=== PATIENT | male | born 1960 | race Caucasian/White ===

== ENCOUNTER 2021-08-02 11:00 | Inpatient (IN) | payer OTHER ==
[2021-08-02] MEDS ORDERED: MAGNESIUM CITRATE 300 ML BOTTLE PO PRN (11:58)
[2021-08-02] MEDS ORDERED: IBUPROFEN 400 MG TABLET (FP) PO PRN (11:58)
[2021-08-02] MEDS ORDERED: MAG HYDROX/AL HYDROX/SIMETH 30 ML UNIT-DOSE CUP PO PRN (11:58)
[2021-08-02] MEDS ORDERED: MAGNESIUM HYDROX 2400MG/30ML ORAL SUSPENSION 30 ML CUP PO PRN (11:58)
[2021-08-02] MEDS ORDERED: LOPERAMIDE HCL 2 MG CAPSULE PO PRN (11:58)
[2021-08-02] MEDS ORDERED: guaiFENesin 200 MG/10 ML 10 ML UNIT-DOSE CUPS PO PRN (11:58)
[2021-08-02] MEDS ORDERED: ACETAMINOPHEN 325 MG TABLET (FP) PO PRN (11:58)
[2021-08-02] MEDS ORDERED: P-EPHED 60MG/TRIPROLIDI 2.5MG TABLET PO PRN (11:58)
[2021-08-02 12:32] VITALS: BMI 26.9
[2021-08-02] MEDS: PRENATAL VITAMINS W/ FOLIC ACID TABLET (FP) PO SCH (18:18)
[2021-08-02] MEDS: hydrOXYzine PAMOATE 25 MG CAPSULE (FP) PO SCH ×3 (18:18→21:57)
[2021-08-02] MEDS: NICOTINE 10 MG CARTRIDGE (INHALER) IH PRN (18:19)
[2021-08-02] MEDS: NICOTINE 7 MG/24 HOURS TOPICAL PATCH TD SCH (18:22)
[2021-08-02] MEDS: THIAMINE HCL 100 MG TABLET (FP) PO SCH (21:57)
[2021-08-02] MEDS: MELATONIN 5 MG TABLETS PO SCH (21:57)
[2021-08-03] MEDS: hydrOXYzine PAMOATE 25 MG CAPSULE (FP) PO SCH ×5 (06:03→21:12)
[2021-08-03] MEDS ORDERED: methaDONE HCL 40 MG DISPERSABLE TABLET PO SCH (07:30)
[2021-08-03] MEDS ORDERED: methaDONE 80 MG, methaDONE 10 MG PO ONE (08:00)
[2021-08-03] MEDS ORDERED: methaDONE HCL 40 MG DISPERSABLE TABLET ONE (08:03)
[2021-08-03] MEDS ORDERED: methaDONE HCL 10 MG TABLET ONE (08:03)
[2021-08-03] MEDS: PRENATAL VITAMINS W/ FOLIC ACID TABLET (FP) PO SCH (10:48)
[2021-08-03] MEDS: NICOTINE 7 MG/24 HOURS TOPICAL PATCH TD SCH (10:48)
[2021-08-03 14:16] LABS: HEMATOCRIT 37.5 % (35.4-49); HEMOGLOBIN 12.5 GM/dL (11.7-16.9); MCH 28.7 pg (25.7-33.7); MCHC 33.4 g/dl (32.0-35.9); MEAN CELL VOLUME 85.9 fl (80-96); MEAN PLT VOLUME 9.8 fl (7.5-11.1); PLATELET COUNT 149 10^3/uL (134-434); RBC 4.37 M/mm3 (4.00-5.60); RDW 13.8 % (11.9-15.9); WHITE BLOOD COUNT 5.5 K/mm3 (4.0-10.0)
[2021-08-03 14:17] LABS: ALBUMIN 3.3 g/dl (3.4-5.0); BLOOD UREA NITROGEN 11.2 mg/dL (7-18); CALCIUM 8.1 mg/dL (8.5-10.1)
[2021-08-03 14:20] LABS: CREATININE 0.9 mg/dL (0.55-1.3)
[2021-08-03 14:22] LABS: BILIRUBIN,TOTAL 0.5 mg/dL (0.2-1); TOT PROT 6.2 g/dl (6.4-8.2)
[2021-08-03 14:42] LABS: SYPHILIS W/ RPR CONF NON-REACTIVE (NONREACTIVE)
[2021-08-03] MEDS: THIAMINE HCL 100 MG TABLET (FP) PO SCH (21:12)
[2021-08-03] MEDS: MELATONIN 5 MG TABLETS PO SCH (21:12)
[2021-08-04] MEDS: hydrOXYzine PAMOATE 25 MG CAPSULE (FP) PO SCH ×5 (05:58→21:35)
[2021-08-04] MEDS ORDERED: methaDONE HCL 10 MG TABLET ONE (06:22)
[2021-08-04] MEDS ORDERED: methaDONE HCL 40 MG DISPERSABLE TABLET ONE (06:22)
[2021-08-04] MEDS: methaDONE 80 MG, methaDONE 10 MG PO SCH (06:24)
[2021-08-04] MEDS: PRENATAL VITAMINS W/ FOLIC ACID TABLET (FP) PO SCH (10:16)
[2021-08-04] MEDS: NICOTINE 7 MG/24 HOURS TOPICAL PATCH TD SCH (10:16)
[2021-08-04] MEDS: TOLNAFTATE 1% CREAM 15 GM TUBE TP SCH ×2 (14:32→21:35)
[2021-08-04] MEDS: MELATONIN 5 MG TABLETS PO SCH (21:34)
[2021-08-04] MEDS: THIAMINE HCL 100 MG TABLET (FP) PO SCH (21:34)
[2021-08-05] MEDS ORDERED: methaDONE HCL 40 MG DISPERSABLE TABLET ONE (06:17)
[2021-08-05] MEDS ORDERED: methaDONE HCL 10 MG TABLET ONE (06:17)
[2021-08-05] MEDS: methaDONE 80 MG, methaDONE 10 MG PO SCH (06:17)
[2021-08-05] MEDS: hydrOXYzine PAMOATE 25 MG CAPSULE (FP) PO SCH ×5 (06:18→21:37)
[2021-08-05] MEDS: PRENATAL VITAMINS W/ FOLIC ACID TABLET (FP) PO SCH (10:04)
[2021-08-05] MEDS: NICOTINE 7 MG/24 HOURS TOPICAL PATCH TD SCH (10:04)
[2021-08-05] MEDS: TOLNAFTATE 1% CREAM 15 GM TUBE TP SCH ×2 (10:05→21:37)
[2021-08-05 12:59] LABS: PH,URINE 5.5 (5.0-8.0); URINE APPEARANCE CLEAR; URINE BILIRUBIN NEGATIVE (NEGATIVE); URINE COLOR YELLOW; URINE GLUCOSE (UA) NEGATIVE (NEGATIVE); URINE KETONE NEGATIVE (NEGATIVE); URINE LEUK ESTERASE NEGATIVE (NEGATIVE); URINE NITRITE NEGATIVE (NEGATIVE); URINE PROTEIN NEGATIVE (NEGATIVE); URINE UROBILINOGEN 0.2 mg/dL (0.2-1.0)
[2021-08-05] MEDS: BACITRACIN 0.9 GM PACKET TP SCH (13:43)
[2021-08-05] MEDS: NICOTINE 10 MG CARTRIDGE (INHALER) IH PRN ×2 (15:45→21:38)
[2021-08-05] MEDS: MELATONIN 5 MG TABLETS PO SCH (21:36)
[2021-08-05] MEDS: THIAMINE HCL 100 MG TABLET (FP) PO SCH (21:37)
[2021-08-06] MEDS ORDERED: methaDONE HCL 10 MG TABLET ONE (02:33)
[2021-08-06] MEDS ORDERED: methaDONE HCL 40 MG DISPERSABLE TABLET ONE (02:34)
[2021-08-06] MEDS: hydrOXYzine PAMOATE 25 MG CAPSULE (FP) PO SCH ×5 (06:00→21:31)
[2021-08-06] MEDS: methaDONE 80 MG, methaDONE 10 MG PO SCH (06:12)
[2021-08-06] MEDS: TOLNAFTATE 1% CREAM 15 GM TUBE TP SCH ×2 (09:52→21:32)
[2021-08-06] MEDS: NICOTINE 7 MG/24 HOURS TOPICAL PATCH TD SCH (09:52)
[2021-08-06] MEDS: BACITRACIN 0.9 GM PACKET TP SCH (09:52)
[2021-08-06] MEDS: PRENATAL VITAMINS W/ FOLIC ACID TABLET (FP) PO SCH (09:52)
[2021-08-06] MEDS: NICOTINE 10 MG CARTRIDGE (INHALER) IH PRN ×3 (09:59→21:32)
[2021-08-06 14:11] LABS: SARS-CoV-2 NAA Not Detected (Not Detected)
[2021-08-06] MEDS: THIAMINE HCL 100 MG TABLET (FP) PO SCH (21:31)
[2021-08-06] MEDS: MELATONIN 5 MG TABLETS PO SCH (21:31)
[2021-08-07] MEDS ORDERED: methaDONE HCL 10 MG TABLET ONE (02:41)
[2021-08-07] MEDS ORDERED: methaDONE HCL 40 MG DISPERSABLE TABLET ONE (02:41)
[2021-08-07] MEDS: hydrOXYzine PAMOATE 25 MG CAPSULE (FP) PO SCH ×5 (06:05→21:25)
[2021-08-07] MEDS: methaDONE 80 MG, methaDONE 10 MG PO SCH (06:18)
[2021-08-07] MEDS: NICOTINE 10 MG CARTRIDGE (INHALER) IH PRN ×3 (06:18→17:53)
[2021-08-07] MEDS: NICOTINE 7 MG/24 HOURS TOPICAL PATCH TD SCH (10:21)
[2021-08-07] MEDS: PRENATAL VITAMINS W/ FOLIC ACID TABLET (FP) PO SCH (10:21)
[2021-08-07] MEDS: BACITRACIN 0.9 GM PACKET TP SCH (10:22)
[2021-08-07] MEDS: TOLNAFTATE 1% CREAM 15 GM TUBE TP SCH ×2 (10:24→21:25)
[2021-08-07] MEDS: MELATONIN 5 MG TABLETS PO SCH (21:25)
[2021-08-07] MEDS: THIAMINE HCL 100 MG TABLET (FP) PO SCH (21:25)
[2021-08-08] MEDS ORDERED: methaDONE HCL 40 MG DISPERSABLE TABLET ONE (03:57)
[2021-08-08] MEDS ORDERED: methaDONE HCL 10 MG TABLET ONE (03:57)
[2021-08-08] MEDS: hydrOXYzine PAMOATE 25 MG CAPSULE (FP) PO SCH ×5 (06:28→21:14)
[2021-08-08] MEDS: methaDONE 80 MG, methaDONE 10 MG PO SCH (06:28)
[2021-08-08] MEDS: NICOTINE 10 MG CARTRIDGE (INHALER) IH PRN ×3 (06:29→17:57)
[2021-08-08] MEDS: PRENATAL VITAMINS W/ FOLIC ACID TABLET (FP) PO SCH (09:45)
[2021-08-08] MEDS: BACITRACIN 0.9 GM PACKET TP SCH (09:45)
[2021-08-08] MEDS: NICOTINE 7 MG/24 HOURS TOPICAL PATCH TD SCH (09:46)
[2021-08-08] MEDS: TOLNAFTATE 1% CREAM 15 GM TUBE TP SCH ×2 (09:46→21:15)
[2021-08-08] MEDS: THIAMINE HCL 100 MG TABLET (FP) PO SCH (21:14)
[2021-08-08] MEDS: MELATONIN 5 MG TABLETS PO SCH (21:14)
[2021-08-09] MEDS ORDERED: methaDONE HCL 40 MG DISPERSABLE TABLET ONE (03:29)
[2021-08-09] MEDS ORDERED: methaDONE HCL 10 MG TABLET ONE (03:29)
[2021-08-09] MEDS: hydrOXYzine PAMOATE 25 MG CAPSULE (FP) PO SCH ×5 (06:21→21:29)
[2021-08-09] MEDS: methaDONE 80 MG, methaDONE 10 MG PO SCH (06:22)
[2021-08-09] MEDS: NICOTINE 10 MG CARTRIDGE (INHALER) IH PRN ×3 (09:51→21:29)
[2021-08-09] MEDS: NICOTINE 7 MG/24 HOURS TOPICAL PATCH TD SCH (09:52)
[2021-08-09] MEDS: BACITRACIN 0.9 GM PACKET TP SCH (09:52)
[2021-08-09] MEDS: PRENATAL VITAMINS W/ FOLIC ACID TABLET (FP) PO SCH (09:52)
[2021-08-09] MEDS: TOLNAFTATE 1% CREAM 15 GM TUBE TP SCH ×2 (09:53→21:29)
[2021-08-09] MEDS: MELATONIN 5 MG TABLETS PO SCH (21:29)
[2021-08-09] MEDS: THIAMINE HCL 100 MG TABLET (FP) PO SCH (21:29)
[2021-08-10] MEDS ORDERED: methaDONE HCL 40 MG DISPERSABLE TABLET ONE (02:43)
[2021-08-10] MEDS ORDERED: methaDONE HCL 10 MG TABLET ONE (02:43)
[2021-08-10] MEDS: hydrOXYzine PAMOATE 25 MG CAPSULE (FP) PO SCH ×3 (06:08→09:58)
[2021-08-10] MEDS: methaDONE 80 MG, methaDONE 10 MG PO SCH (06:15)
[2021-08-10] MEDS: NICOTINE 10 MG CARTRIDGE (INHALER) IH PRN ×2 (06:18→19:56)
[2021-08-10] MEDS: NICOTINE 7 MG/24 HOURS TOPICAL PATCH TD SCH (09:57)
[2021-08-10] MEDS: PRENATAL VITAMINS W/ FOLIC ACID TABLET (FP) PO SCH (09:57)
[2021-08-10] MEDS: BACITRACIN 0.9 GM PACKET TP SCH (09:57)
[2021-08-10] MEDS: TOLNAFTATE 1% CREAM 15 GM TUBE TP SCH ×2 (09:58→21:20)
[2021-08-10] MEDS: THIAMINE HCL 100 MG TABLET (FP) PO SCH (21:19)
[2021-08-10] MEDS: MELATONIN 5 MG TABLETS PO SCH (21:19)
[2021-08-10] MEDS: hydrOXYzine PAMOATE 25 MG CAPSULE (FP) PO PRN (21:20)
[2021-08-11] MEDS ORDERED: methaDONE HCL 40 MG DISPERSABLE TABLET ONE (06:11)
[2021-08-11] MEDS ORDERED: methaDONE HCL 10 MG TABLET ONE (06:11)
[2021-08-11] MEDS: methaDONE 80 MG, methaDONE 10 MG PO SCH (06:12)
[2021-08-11] MEDS: NICOTINE 10 MG CARTRIDGE (INHALER) IH PRN ×2 (06:13→21:28)
[2021-08-11] MEDS: NICOTINE 7 MG/24 HOURS TOPICAL PATCH TD SCH (09:49)
[2021-08-11] MEDS: PRENATAL VITAMINS W/ FOLIC ACID TABLET (FP) PO SCH (09:49)
[2021-08-11] MEDS: BACITRACIN 0.9 GM PACKET TP SCH (09:50)
[2021-08-11] MEDS: TOLNAFTATE 1% CREAM 15 GM TUBE TP SCH ×2 (09:50→21:28)
[2021-08-11] MEDS: hydrOXYzine PAMOATE 25 MG CAPSULE (FP) PO PRN ×2 (09:51→21:27)
[2021-08-11] MEDS: THIAMINE HCL 100 MG TABLET (FP) PO SCH (21:27)
[2021-08-11] MEDS: MELATONIN 5 MG TABLETS PO SCH (21:27)
[2021-08-12] MEDS ORDERED: methaDONE HCL 10 MG TABLET ONE (02:44)
[2021-08-12] MEDS ORDERED: methaDONE HCL 40 MG DISPERSABLE TABLET ONE (02:44)
[2021-08-12] MEDS: methaDONE 80 MG, methaDONE 10 MG PO SCH (06:10)
[2021-08-12] MEDS: NICOTINE 10 MG CARTRIDGE (INHALER) IH PRN ×2 (06:11→19:50)
[2021-08-12] MEDS: hydrOXYzine PAMOATE 25 MG CAPSULE (FP) PO PRN ×2 (10:12→21:36)
[2021-08-12] MEDS: PRENATAL VITAMINS W/ FOLIC ACID TABLET (FP) PO SCH (10:12)
[2021-08-12] MEDS: BACITRACIN 0.9 GM PACKET TP SCH (10:12)
[2021-08-12] MEDS: TOLNAFTATE 1% CREAM 15 GM TUBE TP SCH ×2 (10:13→23:54)
[2021-08-12] MEDS: NICOTINE 7 MG/24 HOURS TOPICAL PATCH TD SCH (10:13)
[2021-08-12] MEDS: MELATONIN 5 MG TABLETS PO SCH (21:36)
[2021-08-12] MEDS: THIAMINE HCL 100 MG TABLET (FP) PO SCH (21:36)
[2021-08-13] MEDS ORDERED: methaDONE HCL 40 MG DISPERSABLE TABLET ONE (04:03)
[2021-08-13] MEDS ORDERED: methaDONE HCL 10 MG TABLET ONE (04:03)
[2021-08-13] MEDS: NICOTINE 10 MG CARTRIDGE (INHALER) IH PRN ×3 (06:14→21:48)
[2021-08-13] MEDS: methaDONE 80 MG, methaDONE 10 MG PO SCH (06:15)
[2021-08-13] MEDS: PRENATAL VITAMINS W/ FOLIC ACID TABLET (FP) PO SCH (10:17)
[2021-08-13] MEDS: BACITRACIN 0.9 GM PACKET TP SCH (10:18)
[2021-08-13] MEDS: TOLNAFTATE 1% CREAM 15 GM TUBE TP SCH ×2 (10:18→21:47)
[2021-08-13] MEDS: NICOTINE 7 MG/24 HOURS TOPICAL PATCH TD SCH (10:18)
[2021-08-13] MEDS: hydrOXYzine PAMOATE 25 MG CAPSULE (FP) PO PRN ×2 (10:19→21:48)
[2021-08-13] MEDS: THIAMINE HCL 100 MG TABLET (FP) PO SCH (21:46)
[2021-08-13] MEDS: MELATONIN 5 MG TABLETS PO SCH (21:47)
[2021-08-14] MEDS ORDERED: methaDONE HCL 40 MG DISPERSABLE TABLET ONE (04:50)
[2021-08-14] MEDS ORDERED: methaDONE HCL 10 MG TABLET ONE (04:50)
[2021-08-14] MEDS: NICOTINE 10 MG CARTRIDGE (INHALER) IH PRN ×4 (06:18→21:27)
[2021-08-14] MEDS: methaDONE 80 MG, methaDONE 10 MG PO SCH (06:18)
[2021-08-14] MEDS: hydrOXYzine PAMOATE 25 MG CAPSULE (FP) PO PRN ×2 (06:20→21:27)
[2021-08-14] MEDS: PRENATAL VITAMINS W/ FOLIC ACID TABLET (FP) PO SCH (10:11)
[2021-08-14] MEDS: NICOTINE 7 MG/24 HOURS TOPICAL PATCH TD SCH (10:13)
[2021-08-14] MEDS: TOLNAFTATE 1% CREAM 15 GM TUBE TP SCH ×2 (10:13→23:29)
[2021-08-14] MEDS: BACITRACIN 0.9 GM PACKET TP SCH (10:13)
[2021-08-14] MEDS: MELATONIN 5 MG TABLETS PO SCH (21:27)
[2021-08-14] MEDS: THIAMINE HCL 100 MG TABLET (FP) PO SCH (21:27)
[2021-08-15] MEDS ORDERED: methaDONE HCL 10 MG TABLET ONE (02:52)
[2021-08-15] MEDS ORDERED: methaDONE HCL 40 MG DISPERSABLE TABLET ONE (02:52)
[2021-08-15] MEDS: methaDONE 80 MG, methaDONE 10 MG PO SCH (06:24)
[2021-08-15] MEDS: NICOTINE 10 MG CARTRIDGE (INHALER) IH PRN ×2 (06:25→21:33)
[2021-08-15] MEDS: PRENATAL VITAMINS W/ FOLIC ACID TABLET (FP) PO SCH (10:11)
[2021-08-15] MEDS: hydrOXYzine PAMOATE 25 MG CAPSULE (FP) PO PRN ×2 (10:11→21:33)
[2021-08-15] MEDS: NICOTINE 7 MG/24 HOURS TOPICAL PATCH TD SCH (10:12)
[2021-08-15] MEDS: BACITRACIN 0.9 GM PACKET TP SCH (10:12)
[2021-08-15] MEDS: TOLNAFTATE 1% CREAM 15 GM TUBE TP SCH ×2 (10:12→21:33)
[2021-08-15] MEDS: THIAMINE HCL 100 MG TABLET (FP) PO SCH (21:33)
[2021-08-15] MEDS: MELATONIN 5 MG TABLETS PO SCH (21:33)
[2021-08-16] MEDS ORDERED: methaDONE HCL 10 MG TABLET ONE (02:49)
[2021-08-16] MEDS ORDERED: methaDONE HCL 40 MG DISPERSABLE TABLET ONE (02:49)
[2021-08-16] MEDS: methaDONE 80 MG, methaDONE 10 MG PO SCH (06:14)
[2021-08-16 07:25] VITALS: BP 141/81; PULSE 71; TEMP 97.8
[2021-08-16] MEDS: PRENATAL VITAMINS W/ FOLIC ACID TABLET (FP) PO SCH (09:40)
[2021-08-16] MEDS: BACITRACIN 0.9 GM PACKET TP SCH (09:40)
[2021-08-16] MEDS: TOLNAFTATE 1% CREAM 15 GM TUBE TP SCH (09:40)
[2021-08-16] MEDS: NICOTINE 7 MG/24 HOURS TOPICAL PATCH TD SCH (09:40)
== END 2021-08-16 10:00 | disposition home or self-care (01) | DRG 772 ==
LOC: YASAS 11:00 → Y5N 16:41
PROVIDERS: ADMIT Allergy & Immunology; ATTEND Allergy & Immunology
PROC: HZ42ZZZ Group Counseling for Substance Abuse Treatment, Cognitive-Behavioral (ICD-10-PCS; principal; 2021-08-02)
DX: F11.20 Opioid dependence, uncomplicated (principal); F14.20 Cocaine dependence, uncomplicated; F13.20 Sedative, hypnotic or anxiolytic dependence, uncomplicated; F12.20 Cannabis dependence, uncomplicated; F17.210 Nicotine dependence, cigarettes, uncomplicated; M54.50 Low back pain, unspecified; G89.29 Other chronic pain; B35.3 Tinea pedis
CPT/HCPCS: 36415; 80053; 81003; 85027; 86780; 86803; 87522; 93005; 93010; C9803; U0003; U0005

== ENCOUNTER 2023-04-17 10:55 | Inpatient (IN) | payer OTHER ==
[2023-04-17 11:32] VITALS: BMI 25.8
[2023-04-17] MEDS ORDERED: BENZONATATE 200 MG CAPSULE PO PRN (13:27)
[2023-04-17] MEDS ORDERED: ACETAMINOPHEN 325 MG TABLET (FP) PO PRN (13:27)
[2023-04-17] MEDS ORDERED: IBUPROFEN 600 MG TABLET (FP) PO PRN (13:27)
[2023-04-17] MEDS ORDERED: NALOXONE HCL (KLOXXADO) 8 MG SPRAY NS PRN (13:27)
[2023-04-17] MEDS ORDERED: POLYETHYLENE GLYCOL (HEALTHYLAX) 3350 17 GM PACKET PO PRN (13:27)
[2023-04-17] MEDS ORDERED: MAG HYDROX/AL HYDROX/SIMETH 30 ML UNIT-DOSE CUP PO PRN (13:27)
[2023-04-17] MEDS ORDERED: guaiFENesin 600 MG TABLET.ER (FP) PO PRN (13:27)
[2023-04-17] MEDS ORDERED: IBUPROFEN 400 MG TABLET (FP) PO PRN (13:27)
[2023-04-17] MEDS ORDERED: hydrOXYzine PAMOATE 25 MG CAPSULE (FP) PO PRN (13:27)
[2023-04-17] MEDS ORDERED: BENZOCAINE/MENTHOL (CHLORASEPTIC ) LOZENGE MM PRN (13:27)
[2023-04-17] MEDS ORDERED: COLLOIDAL OATMEAL 1 BAR EACH TP PRN (13:27)
[2023-04-17] MEDS ORDERED: NALOXONE HCL 0.4 MG/ML VIAL IM PRN (13:27)
[2023-04-17] MEDS ORDERED: MAGNESIUM HYDROX 2400MG/30ML ORAL SUSPENSION 30 ML CUP PO PRN (13:27)
[2023-04-17] MEDS ORDERED: LOPERAMIDE HCL 2 MG CAPSULE PO PRN (13:27)
[2023-04-17] MEDS ORDERED: PRENATAL VITAMINS W/ FOLIC ACID TABLET (FP) PO ONE (14:04)
[2023-04-17] MEDS ORDERED: NICOTINE 14 MG/24 HOURS TOPICAL PATCH TD ONE (14:04)
[2023-04-17] MEDS: NICOTINE 14 MG/24 HOURS TOPICAL PATCH TD SCH (14:07)
[2023-04-17] MEDS: PRENATAL VITAMINS W/ FOLIC ACID TABLET (FP) PO SCH (14:07)
[2023-04-17] MEDS ORDERED: methaDONE HCL 10 MG TABLET PO SCH (15:00)
[2023-04-17] MEDS ORDERED: TUBERCULIN PPD 5 TU/0.1ML SYRINGE (IN PATIENT USE ONLY) ID ONE (18:00)
[2023-04-17] MEDS: THIAMINE HCL 100 MG TABLET (FP) PO SCH (22:15)
[2023-04-17] MEDS: MELATONIN 5 MG TABLETS PO SCH (22:15)
[2023-04-17] MEDS ORDERED: TUBERCULIN PPD 5 TU/0.1ML VIAL ID ONE ×2 (22:29→22:50)
[2023-04-18] MEDS ORDERED: NICOTINE POLACRILEX 4 MG GUM BUC PRN (08:16)
[2023-04-18] MEDS: PRENATAL VITAMINS W/ FOLIC ACID TABLET (FP) PO SCH (10:07)
[2023-04-18] MEDS: NICOTINE 14 MG/24 HOURS TOPICAL PATCH TD SCH (10:07)
[2023-04-18] MEDS: METHOCARBAMOL 500 MG TABLET PO PRN ×2 (10:09→21:12)
[2023-04-18 10:56] LABS: HEMATOCRIT 38.6 % (35.4-49); HEMOGLOBIN 12.7 GM/dL (11.7-16.9); MCH 28.2 pg (25.7-33.7); MEAN CELL VOLUME 85.4 fl (80-96); MEAN PLT VOLUME 10.1 fl (7.5-11.1); PLATELET COUNT 171 10^3/uL (134-434); RBC 4.52 M/mm3 (4.00-5.60); RDW 13.7 % (11.9-15.9); WHITE BLOOD COUNT 5.5 K/mm3 (4.0-10.0)
[2023-04-18 11:05] LABS: CHLORIDE 108 mmol/L (98-107); POTASSIUM 4.4 mmol/L (3.5-5.1); SODIUM 138 mmol/L (136-145)
[2023-04-18 11:19] LABS: BLOOD UREA NITROGEN 14.7 mg/dL (7-18); GLUCOSE,RANDOM 97 mg/dL (74-106)
[2023-04-18 11:20] LABS: ALBUMIN 3.3 g/dl (3.4-5.0)
[2023-04-18 11:21] LABS: ANION GAP 6 mmol/L (4-13); CALCIUM 8.1 mg/dL (8.5-10.1); CO2 25 mmol/L (21-32)
[2023-04-18 11:22] LABS: CREATININE 0.9 mg/dL (0.55-1.3); SGOT/AST 13 U/L (15-37); SGPT/ALT 13 U/L (13-61)
[2023-04-18 11:23] LABS: BILIRUBIN,TOTAL 0.4 mg/dL (0.2-1); TOT PROT 6.8 g/dl (6.4-8.2)
[2023-04-18 11:25] LABS: ALK PHOS 60 U/L (45-117)
[2023-04-18 11:29] LABS: SYPHILIS W/ RPR CONF NON-REACTIVE (NONREACTIVE)
[2023-04-18 13:41] LABS: PH,URINE 5.5 (5.0-8.0); URINE APPEARANCE CLEAR; URINE BILIRUBIN NEGATIVE (NEGATIVE); URINE COLOR YELLOW; URINE GLUCOSE (UA) NEGATIVE (NEGATIVE); URINE KETONE NEGATIVE (NEGATIVE); URINE LEUK ESTERASE NEGATIVE (NEGATIVE); URINE NITRITE NEGATIVE (NEGATIVE); URINE PROTEIN NEGATIVE (NEGATIVE); URINE UROBILINOGEN 0.2 mg/dL (0.2-1.0)
[2023-04-18] MEDS ORDERED: AMMONIUM LACTATE 12% LOTION 225 GM BOTTLE TP PRN (15:19)
[2023-04-18] MEDS: THIAMINE HCL 100 MG TABLET (FP) PO SCH (21:10)
[2023-04-18] MEDS: MELATONIN 5 MG TABLETS PO SCH (21:10)
[2023-04-18] MEDS: TOLNAFTATE 1% CREAM 15 GM TUBE TP SCH (21:12)
[2023-04-18] MEDS ORDERED: SUVOREXANT 10 MG TABLET PO PRN (22:00)
[2023-04-19] MEDS: METHOCARBAMOL 500 MG TABLET PO PRN (06:17)
[2023-04-19] MEDS: TOLNAFTATE 1% CREAM 15 GM TUBE TP SCH ×2 (10:07→21:06)
[2023-04-19] MEDS: NICOTINE 14 MG/24 HOURS TOPICAL PATCH TD SCH (10:07)
[2023-04-19] MEDS: CALCIUM 500MG/VIT-D 200 UNITS COMBO TABLET (FP) PO SCH (10:07)
[2023-04-19] MEDS: PRENATAL VITAMINS W/ FOLIC ACID TABLET (FP) PO SCH (10:07)
[2023-04-19] MEDS: THIAMINE HCL 100 MG TABLET (FP) PO SCH (21:06)
[2023-04-19] MEDS: SUVOREXANT 10 MG TABLET PO PRN (21:08)
[2023-04-20] MEDS: METHOCARBAMOL 500 MG TABLET PO PRN (06:15)
[2023-04-20] MEDS: NICOTINE 14 MG/24 HOURS TOPICAL PATCH TD SCH (10:08)
[2023-04-20] MEDS: TOLNAFTATE 1% CREAM 15 GM TUBE TP SCH ×2 (10:09→21:04)
[2023-04-20] MEDS: PRENATAL VITAMINS W/ FOLIC ACID TABLET (FP) PO SCH (10:09)
[2023-04-20] MEDS: CALCIUM 500MG/VIT-D 200 UNITS COMBO TABLET (FP) PO SCH (10:09)
[2023-04-20] MEDS: THIAMINE HCL 100 MG TABLET (FP) PO SCH (21:03)
[2023-04-20] MEDS: SUVOREXANT 10 MG TABLET PO PRN (21:05)
[2023-04-21] MEDS: CALCIUM 500MG/VIT-D 200 UNITS COMBO TABLET (FP) PO SCH (09:53)
[2023-04-21] MEDS: NICOTINE 14 MG/24 HOURS TOPICAL PATCH TD SCH (09:53)
[2023-04-21] MEDS: METHOCARBAMOL 500 MG TABLET PO PRN ×2 (09:54→21:05)
[2023-04-21] MEDS: TOLNAFTATE 1% CREAM 15 GM TUBE TP SCH ×2 (09:54→21:04)
[2023-04-21] MEDS: PRENATAL VITAMINS W/ FOLIC ACID TABLET (FP) PO SCH (09:54)
[2023-04-21] MEDS: SUVOREXANT 10 MG TABLET PO PRN (21:05)
[2023-04-21] MEDS: THIAMINE HCL 100 MG TABLET (FP) PO SCH (21:05)
[2023-04-22] MEDS: CALCIUM 500MG/VIT-D 200 UNITS COMBO TABLET (FP) PO SCH (09:35)
[2023-04-22] MEDS: NICOTINE 14 MG/24 HOURS TOPICAL PATCH TD SCH (09:35)
[2023-04-22] MEDS: METHOCARBAMOL 500 MG TABLET PO PRN ×2 (09:36→21:08)
[2023-04-22] MEDS: PRENATAL VITAMINS W/ FOLIC ACID TABLET (FP) PO SCH (09:37)
[2023-04-22] MEDS: TOLNAFTATE 1% CREAM 15 GM TUBE TP SCH ×2 (09:37→21:08)
[2023-04-22] MEDS: THIAMINE HCL 100 MG TABLET (FP) PO SCH (21:08)
[2023-04-22] MEDS: SUVOREXANT 10 MG TABLET PO PRN (21:08)
[2023-04-23] MEDS: CALCIUM 500MG/VIT-D 200 UNITS COMBO TABLET (FP) PO SCH (09:43)
[2023-04-23] MEDS: PRENATAL VITAMINS W/ FOLIC ACID TABLET (FP) PO SCH (09:43)
[2023-04-23] MEDS: NICOTINE 14 MG/24 HOURS TOPICAL PATCH TD SCH (09:43)
[2023-04-23] MEDS: TOLNAFTATE 1% CREAM 15 GM TUBE TP SCH ×2 (09:44→21:16)
[2023-04-23] MEDS: METHOCARBAMOL 500 MG TABLET PO PRN (09:45)
[2023-04-23] MEDS: THIAMINE HCL 100 MG TABLET (FP) PO SCH (21:15)
[2023-04-23] MEDS: SUVOREXANT 10 MG TABLET PO PRN (21:16)
[2023-04-24] MEDS: NICOTINE 14 MG/24 HOURS TOPICAL PATCH TD SCH (09:52)
[2023-04-24] MEDS: TOLNAFTATE 1% CREAM 15 GM TUBE TP SCH ×2 (09:53→21:10)
[2023-04-24] MEDS: CALCIUM 500MG/VIT-D 200 UNITS COMBO TABLET (FP) PO SCH (09:53)
[2023-04-24] MEDS: PRENATAL VITAMINS W/ FOLIC ACID TABLET (FP) PO SCH (09:53)
[2023-04-24] MEDS: METHOCARBAMOL 500 MG TABLET PO PRN ×2 (09:54→21:10)
[2023-04-24] MEDS: SUVOREXANT 10 MG TABLET PO PRN (21:08)
[2023-04-24] MEDS: THIAMINE HCL 100 MG TABLET (FP) PO SCH (21:10)
[2023-04-25] MEDS: CALCIUM 500MG/VIT-D 200 UNITS COMBO TABLET (FP) PO SCH (09:46)
[2023-04-25] MEDS: NICOTINE 14 MG/24 HOURS TOPICAL PATCH TD SCH (09:46)
[2023-04-25] MEDS: METHOCARBAMOL 500 MG TABLET PO PRN ×2 (09:46→21:16)
[2023-04-25] MEDS: PRENATAL VITAMINS W/ FOLIC ACID TABLET (FP) PO SCH (09:46)
[2023-04-25] MEDS: TOLNAFTATE 1% CREAM 15 GM TUBE TP SCH ×2 (10:49→21:54)
[2023-04-25] MEDS: THIAMINE HCL 100 MG TABLET (FP) PO SCH (21:15)
[2023-04-25] MEDS: SUVOREXANT 10 MG TABLET PO PRN (21:15)
[2023-04-26] MEDS: NICOTINE 14 MG/24 HOURS TOPICAL PATCH TD SCH (10:19)
[2023-04-26] MEDS: PRENATAL VITAMINS W/ FOLIC ACID TABLET (FP) PO SCH (10:19)
[2023-04-26] MEDS: CALCIUM 500MG/VIT-D 200 UNITS COMBO TABLET (FP) PO SCH (10:20)
[2023-04-26] MEDS: METHOCARBAMOL 500 MG TABLET PO PRN (10:21)
[2023-04-26] MEDS: TOLNAFTATE 1% CREAM 15 GM TUBE TP SCH ×2 (10:21→21:23)
[2023-04-26] MEDS: THIAMINE HCL 100 MG TABLET (FP) PO SCH (21:23)
[2023-04-26] MEDS: SUVOREXANT 10 MG TABLET PO PRN (21:24)
[2023-04-27] MEDS: CALCIUM 500MG/VIT-D 200 UNITS COMBO TABLET (FP) PO SCH (09:45)
[2023-04-27] MEDS: NICOTINE 14 MG/24 HOURS TOPICAL PATCH TD SCH (09:45)
[2023-04-27] MEDS: PRENATAL VITAMINS W/ FOLIC ACID TABLET (FP) PO SCH (09:45)
[2023-04-27] MEDS: METHOCARBAMOL 500 MG TABLET PO PRN (09:46)
[2023-04-27] MEDS: TOLNAFTATE 1% CREAM 15 GM TUBE TP SCH ×2 (09:47→21:20)
[2023-04-27] MEDS: SUVOREXANT 10 MG TABLET PO PRN (21:19)
[2023-04-27] MEDS: THIAMINE HCL 100 MG TABLET (FP) PO SCH (21:20)
[2023-04-28] MEDS: PRENATAL VITAMINS W/ FOLIC ACID TABLET (FP) PO SCH (09:49)
[2023-04-28] MEDS: NICOTINE 14 MG/24 HOURS TOPICAL PATCH TD SCH (09:49)
[2023-04-28] MEDS: CALCIUM 500MG/VIT-D 200 UNITS COMBO TABLET (FP) PO SCH (09:49)
[2023-04-28] MEDS: METHOCARBAMOL 500 MG TABLET PO PRN (09:50)
[2023-04-28] MEDS: TOLNAFTATE 1% CREAM 15 GM TUBE TP SCH ×2 (09:50→21:06)
[2023-04-28] MEDS: THIAMINE HCL 100 MG TABLET (FP) PO SCH (21:05)
[2023-04-28] MEDS: SUVOREXANT 10 MG TABLET PO PRN (21:06)
[2023-04-28] MEDS ORDERED: SUVOREXANT 10 MG TABLET PO PRN (22:00)
[2023-04-29] MEDS: PRENATAL VITAMINS W/ FOLIC ACID TABLET (FP) PO SCH (09:35)
[2023-04-29] MEDS: CALCIUM 500MG/VIT-D 200 UNITS COMBO TABLET (FP) PO SCH (09:35)
[2023-04-29] MEDS: NICOTINE 14 MG/24 HOURS TOPICAL PATCH TD SCH (09:35)
[2023-04-29] MEDS: METHOCARBAMOL 500 MG TABLET PO PRN (09:35)
[2023-04-29] MEDS: TOLNAFTATE 1% CREAM 15 GM TUBE TP SCH ×2 (10:23→21:25)
[2023-04-29] MEDS: THIAMINE HCL 100 MG TABLET (FP) PO SCH (21:24)
[2023-04-30 06:45] VITALS: PULSE 67
[2023-04-30] MEDS: CALCIUM 500MG/VIT-D 200 UNITS COMBO TABLET (FP) PO SCH (09:43)
[2023-04-30] MEDS: PRENATAL VITAMINS W/ FOLIC ACID TABLET (FP) PO SCH (09:43)
[2023-04-30] MEDS: NICOTINE 14 MG/24 HOURS TOPICAL PATCH TD SCH (09:43)
[2023-04-30] MEDS: METHOCARBAMOL 500 MG TABLET PO PRN (09:44)
[2023-04-30] MEDS: TOLNAFTATE 1% CREAM 15 GM TUBE TP SCH ×2 (10:01→21:11)
[2023-04-30] MEDS: THIAMINE HCL 100 MG TABLET (FP) PO SCH (21:11)
[2023-05-01 07:16] VITALS: BP 127/79; RESP 17; TEMP 97.3
[2023-05-01] MEDS: CALCIUM 500MG/VIT-D 200 UNITS COMBO TABLET (FP) PO SCH (09:11)
[2023-05-01] MEDS: PRENATAL VITAMINS W/ FOLIC ACID TABLET (FP) PO SCH (09:11)
[2023-05-01] MEDS: METHOCARBAMOL 500 MG TABLET PO PRN (09:11)
[2023-05-01] MEDS: TOLNAFTATE 1% CREAM 15 GM TUBE TP SCH (09:12)
[2023-05-01] MEDS: NICOTINE 14 MG/24 HOURS TOPICAL PATCH TD SCH (09:12)
== END 2023-05-01 09:19 | disposition home or self-care (01) | DRG 772 ==
LOC: YASAS 10:55 → Y3E 19:28
PROVIDERS: ADMIT Surgery; ATTEND Psychiatry & Neurology Pain Medicine
PROC: HZ42ZZZ Group Counseling for Substance Abuse Treatment, Cognitive-Behavioral (ICD-10-PCS; principal; 2023-04-17)
DX: F14.20 Cocaine dependence, uncomplicated (principal); F11.20 Opioid dependence, uncomplicated; F17.210 Nicotine dependence, cigarettes, uncomplicated; F19.282 Other psychoactive substance dependence with psychoactive substance-induced sleep disorder; F19.280 Other psychoactive substance dependence with psychoactive substance-induced anxiety disorder; F31.9 Bipolar disorder, unspecified; F41.9 Anxiety disorder, unspecified; E83.51 Hypocalcemia; B35.3 Tinea pedis; M54.50 Low back pain, unspecified; G89.29 Other chronic pain; R94.31 Abnormal electrocardiogram [ECG] [EKG]
CPT/HCPCS: 36415; 80053; 80307; 81003; 85027; 86780; 86803; 87522; 87635; 87811; 93005; 93010